=== PATIENT | male | born 1950 | race Caucasian/White ===

== ENCOUNTER 2021-10-08 00:45 | Day surgery (SDC) | payer MEDICARE, SELFPAY ==
[2021-09-27 14:07] VITALS: BMI 23.0
--- NOTE | 2021-10-07 14:17 | P.HP_ITS ---
History of Present Illness History of Present Illness Consent: Risks, benefits, and alternatives have been discussed and questions answered. Patient agrees to proceed with procedure. 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 He returns now for surveillance of that condition. Also he has a history of colon polyps. Consequently he is having colon cancer screening today Review of Systems Review of Systems: All systems reviewed & are unremarkable except as noted in HPI and below PMFSH Past Medical History Medical History Diabetes Surgical History Surgical History H/O cervical spine surgery History of lumbar surgery History of total hip arthroplasty Social History Social History Living arrangements: with family Spiritual care concerns: No Meds Home Medications and Allergies Home Medications Medication Instructions Recorded Confirmed Type atorvastatin 20 mg PO DAILY 09/27/21 09/27/21 History dapagliflozin [Farxiga] 10 mg PO DAILY 09/27/21 09/27/21 History dulaglutide [Trulicity] 1.5 mg SUBCUT WEEKLY 09/27/21 09/27/21 History fenofibrate micronized 134 mg PO DAILY 09/27/21 09/27/21 History glimepiride 2 mg PO BID 09/27/21 09/27/21 History insulin glargine U-300 conc 20 unit SUBCUT HS 09/27/21 09/27/21 History [Toujeo Max U-300 SoloStar] lisinopril 40 mg PO DAILY 09/27/21 09/27/21 History metformin 1,000 mg PO BID 09/27/21 09/27/21 History pantoprazole 40 mg PO DAILY 09/27/21 09/27/21 History Allergies Allergy/AdvReac Type Severity Reaction Status Date / Time No Known Allergies Allergy Verified 10/08/21 11:05 Exam Const: General: alert Orientation/consciousness: patient oriented x3 Resp: Auscultation: clear to auscultation bilaterally Cardio: Rhythm: regular rhythm GI: GI Palp: Yes Soft to palpation and No Tenderness to palpation present (GI) Neuro: General: patient oriented x3 Assessment and Plan Assessment and plan (1) Medrano's esophagus: Code(s): K22.70 - Medrano's esophagus without dysplasia Status: Acute Assessment and Plan: EGD with possible biopsy or dilatation or cautery. (2) Colon cancer screening: Code(s): Z12.11 - Encounter for screening for malignant neoplasm of colon Status: Acute Assessment and Plan: Colonoscopy with possible biopsy or polypectomy or cautery or injection of substances.
[2021-10-08 11:05] VITALS: BP 147/69; PULSE 76; RESP 18; TEMP 36.5; O2SAT 99
[2021-10-08] MEDS: LACTATED RINGERS 1,000 ML 150 ML IV CONT (11:08)
[2021-10-08 11:14] LABS: Glucose Point of Care 94 mg/dl (65-105)
--- NOTE | 2021-10-08 11:25 | WPDANESEPPF ---
Anes - Initial Pre Proc Eval Procedure: Operation Date: 10/08/21 12:30 Proposed Procedures p Esophagogastroduodenoscopy & Screening Colonoscopy - Estuardo Mejia MD Date/Time: 10/08/21 11:25 Surgeon: Estuardo Mejia MD Pre Op Diagnosis: Medrano's Esophagus, Hx of colon polyps Patient Data Age: 71 Gender: M Height: 1.83 m Weight: 73.8 kg Last Vital Signs Temp 36.5 C 10/08/21 11:05 Pulse 76 10/08/21 11:05 Resp 18 10/08/21 11:05 BP 147/69 H 10/08/21 11:05 Pulse Ox 99 10/08/21 11:05 Allergies Allergy/AdvReac Type Severity Reaction Status Date / Time No Known Allergies Allergy Verified 10/08/21 11:05 Home Medications Medication Instructions Recorded Confirmed Type atorvastatin 20 mg PO DAILY 09/27/21 09/27/21 History dapagliflozin [Farxiga] 10 mg PO DAILY 09/27/21 09/27/21 History dulaglutide [Trulicity] 1.5 mg SUBCUT WEEKLY 09/27/21 09/27/21 History fenofibrate micronized 134 mg PO DAILY 09/27/21 09/27/21 History glimepiride 2 mg PO BID 09/27/21 09/27/21 History insulin glargine U-300 conc 20 unit SUBCUT HS 09/27/21 09/27/21 History [Toujeo Max U-300 SoloStar] lisinopril 40 mg PO DAILY 09/27/21 09/27/21 History metformin 1,000 mg PO BID 09/27/21 09/27/21 History pantoprazole 40 mg PO DAILY 09/27/21 09/27/21 History Laboratory Tests 10/08/21 11:11 POC Capillary Glucose 94 mg/dl mg/dl (65-105) Patient hx anesthesia problems: none Family hx anesthesia problems: none Results Review: All pre-operative results and documents have been reviewed as part of the pre-operative evaluation. [facility] Past Medical History Medical History (Updated 10/08/21 @ 11:25 by Arden Charles MD) Diabetes Surgical History Surgical History (Updated 10/08/21 @ 11:28 by Arden Charles MD) H/O cervical spine surgery History of lumbar surgery History of total hip arthroplasty Social History Social History Living arrangements: with family Spiritual care concerns: No Anes - Eval Final PreProcedure Day of Procedure 10/08/21 11:25 Patient weight: normal Heart: regular rate and rhythm Lungs: clear to auscultation Airway: Mallampati scale class II and special considerations poor extension Neurological: alert and oriented Last oral intake: >/= 8 hours ASA classification: II Emergent: no Anesthetic plan: proceed Anesthesia type and monitoring: general GIVS and standard monitoring Results Review: All pre-operative results and documents have been reviewed as part of the pre-operative evaluation. Informed Consent: The patient's anesthetic plan and its attendant risks and benefits were discussed with the patient/family/POA. Questions were solicited and answers provided to the satisfaction of the patient/family/POA.
[2021-10-08] MEDS: BENZOCAINE (*SP) 60 ML SPRAY CAN (HURRICAINE) 1 SPRAY MUCOUS MEM (12:37)
--- NOTE | 2021-10-08 12:48 | SUR.OPER ---
EGD ended at 1244, Colonoscopy began at 1248.
[2021-10-08 13:05] VITALS: BP 101/58; PULSE 76; RESP 17; O2SAT 100
[2021-10-08 13:15] VITALS: BP 102/57; PULSE 62; RESP 14; O2SAT 100
[2021-10-08 13:17] LABS: Glucose Point of Care 74 mg/dl (65-105)
[2021-10-08 13:25] VITALS: BP 114/77; PULSE 68; RESP 19; O2SAT 100
--- NOTE | 2021-10-08 13:34 | SUR.PHASEII ---
delay for dispo due to md karlene walking with pt
--- NOTE | 2021-10-08 13:36 | SUR.PHASEII ---
pt meets discharge criteria and was taken off the monitor. md ozuna is speaking with pt.
== END 2021-10-08 13:52 | disposition home or self-care (01) ==
PROVIDERS: PCP Internal Medicine; Visit Provider Internal Medicine Gastroenterology
PROC: 0DJ08ZZ Inspection of Upper Intestinal Tract, Via Natural or Artificial Opening Endoscopic (ICD-10-PCS; CPT 43235; principal; 2021-10-08 12:30)
DX: Z12.11 Encounter for screening for malignant neoplasm of colon (principal); D12.5 Benign neoplasm of sigmoid colon; K57.30 Diverticulosis of large intestine without perforation or abscess without bleeding; K22.70 Barrett's esophagus without dysplasia; Z79.4 Long term (current) use of insulin; E11.9 Type 2 diabetes mellitus without complications
CPT/HCPCS: 45385; 43239; 82948; 88305; J7120